=== PATIENT | female | born 1970 | race Caucasian/White ===

== ENCOUNTER 2018-08-28 07:20 | Day surgery (SDC) | payer OTHER ==
[2018-08-27 14:35] VITALS: Ht 170.2 cm; Wt 95.4 kg
[2018-08-28] VITALS (15 sets, daily range): BP systolic 109–153; BP diastolic 64–79; PULSE 74–94; RESP 14–19
[~2018-08-28] VITALS: Ht 170.2 cm; Wt 95.4 kg
--- NOTE | 2018-08-28 06:47 | PREOPHP ---
DATE OF ADMISSION: 08/28/2018 SCHEDULE FOR SURGERY: 08/28/2018. HISTORY OF PRESENT ILLNESS: The patient is a 48-year-old female in overall good health, who underwen t screening imaging revealing in the left breast upper outer quadrant, a 9 mm area of suspicious micr ocalcifications. Core biopsy revealed invasive ductal carcinoma and there was insufficient tissue to do estrogen, progesterone and HER-2 markers. The patient is scheduled to undergo left breast partia l mastectomy with preoperative needle localization and left axillary sentinel lymph node biopsy. PAST MEDICAL HISTORY: MEDICATIONS: Lipitor, and a medication for anxiety, she does not remember the name. ALLERGIES: None. 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 REVIEW OF SYSTEMS: 0, para 0, AB 1. The patient has regular menstrual periods. FAMILY HISTORY: Her grandmother had breast cancer in her 70s. PHYSICAL EXAMINATION: GENERAL: The patient is 5 feet 7 inches, 217 pounds, stable with normal vital signs. HEENT: Within normal limits. LUNGS: Clear. HEART: Regular rhythm. BREAST: The breasts are large and ptotic. There was no palpable mass in either breast. There are n o palpable axillary or supraclavicular lymphadenopathy. ABDOMEN: Soft. PELVIC AND RECTAL: Per primary care. EXTREMITIES: Without edema. NEUROLOGIC: Physiologic. IMPRESSION: Invasive ductal carcinoma, left breast. PLAN: Left breast partial mastectomy with preoperative needle localization and left axillary sentine l lymph node biopsy. I had a full discussion with the patient regarding her condition, the nature of the surgery, indications, alternatives, options and risks including bleeding, infection, injury to a djacent structures or organs, scarring, deformity of the breast and nipple, need for additional surge ry based on final pathology, need for additional treatments based on final pathology including possib le chemotherapy and radiation therapy, hormonal blockade. The patient understands and agrees to proc eed. Dictated By: LUIS RICHEY/IRAIDA Conf#: [id number] DID#: [id number]
[2018-08-28] MEDS ORDERED: SOD CHLORIDE 0.9% 1,000 ML IV SCH (08:00)
--- NOTE | 2018-08-28 09:25 | PREAC ---
Date/Time of Note Date/Time of Note DATE: 08/28/18 TIME: 09:24 Anesthesia Eval and Record Evaluation Time Pre-Procedure Interview DATE: 08/28/18 TIME: 09:24 Age 48 Sex female NPO: 8 hrs Preoperative diagnosis ductal carcinoma Planned procedure left breast partial mastectomy Past Medical History Past Medical History: Includes Cardio: Dyslipidemia GI: Morbid obesity Psych: Anxiety Surgery & Anesthesia Issues No known issue Meds Anticoagulation: No Beta Cathi within 24 hr: No Reason Beta Cathi not given: Pt. not on B-Cathi Current Medications Sodium Chloride 1,000 ml @ 75 mls/hr [id number] IV ; Start 08/28/18 at 08:00; Stop 08/28/18 at 21:19 Meds reviewed: Yes Allergies Coded Allergies: No Known Allergy (Unverified , 08/27/18) Allergies Reviewed: Yes Labs/Studies Labs Reviewed: Reviewed by anesthesiologist test: Negative Studies: ECG (SR), CXR (NAD) Pre-procedure Exam Airway: Adequate mouth opening, Adequate thyromental dist Mallampati: Mallampati II Teeth: Abnormal (poor dentition) Lung: Normal Heart: Normal ASA Physical Status ASA physical status: 3 Emergency: None Planned Anesthetic General/MAC: LMA Pre-operative Attestations Prior to commencing anesthesia and surgery, the patient was re-evaluated, there was verification of: *The patient's identity *The results of appropriate recent lab work and preoperative vital signs *The above evaluation not changing prior to induction *Anesthetic plan, risk benefits, alternative and complications discussed with patient/family; questions answered; patient/family understands, accepts and wishes to proceed. ZEENAT KAUR [facility] JUSTICE Aug 28, 2018 09:25
[2018-08-28] MEDS ORDERED: LIDOCAINE 2% (SDV) 5 ML INJ ONE (09:28)
[2018-08-28] MEDS ORDERED: CEFAZOLIN 1 GM INJ ONE (09:28)
[2018-08-28] MEDS ORDERED: PROPOFOL 20 ML ONE (09:28)
[2018-08-28] MEDS ORDERED: ISOSULFAN BLUE 1% 5 ML INJ SC ONE (09:28)
[2018-08-28] MEDS ORDERED: MIDAZOLAM 1 MG/ML 2 ML INJ ONE (09:32)
[2018-08-28] MEDS ORDERED: ATOR20TA38 PO (10:08)
[2018-08-28] MEDS ORDERED: CLON1TAB13 PO (10:08)
[2018-08-28] MEDS ORDERED: METOCLOPRAMIDE 10 MG INJ ONE (10:10)
[2018-08-28] MEDS ORDERED: ONDANSETRON 4 MG INJ ONE (10:10)
[2018-08-28] MEDS ORDERED: DEXAMETHASONE 4 MG/ML 5 ML INJ ONE (10:28)
[2018-08-28] MEDS ORDERED: ONDANSETRON 4 MG INJ IV PRN ×2 (11:30→12:00)
[2018-08-28] MEDS ORDERED: ACETAMINOPHEN 325 MG TAB PO PRN (11:30)
[2018-08-28] MEDS ORDERED: DIPHENHYDRAMINE 25 MG CAP PO PRN (11:30)
--- NOTE | 2018-08-28 11:33 | SIPON ---
Date/Time of Note Date/Time of Note DATE: 08/28/18 TIME: 11:31 Operative Report Preoperative Diagnosis carcinoma left breast Postoperative Diagnosis same Operation/Procedure Performed left breast partial mastectomy with pre-op needle localization and left axillary sentinel lymph node biopsy Surgeon see signature line facilities maintenance assistant none Anesthesia: general Estimated blood loss: minimal Transfusion Required none Specimen left breast; left axillary lymph nodes Grafts/Implants none Complications none LUIS NICHOLAS Aug 28, 2018 11:33
--- NOTE | 2018-08-28 11:35 | PAC ---
Date/Time of Note Date/Time of Note DATE: 08/28/18 TIME: 11:34 Post-Anesthesia Notes Post-Anesthesia Note Last documented vital signs BP 117/78, HR 90, RR 14, 96%, 97.8 Activity: WNL Respiratory function: WNL Cardiovascular function: WNL Mental status: Baseline Pain reasonably controlled: Yes Hydration appropriate: Yes Nausea/Vomiting absent: Yes ZEENAT KAUR CRNA Aug 28, 2018 11:35
[2018-08-28] MEDS ORDERED: MEPERIDINE 25 MG INJ ONE (11:37)
[2018-08-28] MEDS ORDERED: LABETALOL HCL 20MG INJ IV PRN (12:00)
[2018-08-28] MEDS ORDERED: FENTAnyl 50 MCG/ML VIAL IV PRN ×2 (12:00)
[2018-08-28] MEDS ORDERED: MIDAZOLAM 1 MG/ML 2 ML INJ IV PRN (12:00)
[2018-08-28] MEDS ORDERED: OXYCODONE/ACETAMINOPHEN (5/325) TAB PO PRN ×2 (12:00)
[2018-08-28] MEDS ORDERED: MEPERIDINE 25 MG INJ IV PRN (12:00)
[2018-08-28] MEDS ORDERED: HYDROmorphONE 1 MG/ML SYG SC PRN (12:30)
[2018-08-28] MEDS: D5W-0.45 NACL + KCL 20 MEQ 1,000 ML IV SCH ×2 (13:21→22:00)
--- NOTE | 2018-08-28 14:06 | OPR ---
DATE OF OPERATION: 08/28/2018 SURGEON: Luis Sheffield MD BROTH MIXER: None. ANESTHESIOLOGIST: Jaya Sylvester CRNA. TYPE OF ANESTHESIA: General. PREOPERATIVE DIAGNOSIS: Invasive ductal carcinoma, left breast. POSTOPERATIVE DIAGNOSIS: Invasive ductal carcinoma, left breast. OPERATION PERFORMED: Left breast partial mastectomy with preoperative needle localization and left axillary sentinel lymph node biopsy. DESCRIPTION OF PROCEDURE: The patient was taken to the operating room under general anesthesia with sequential compression device stockings in place she was prepped and draped in the usual fashion. I first injected 3 mL of Lymphazurin at 2 o'clock at the areolar border subdermally. I then made a curvilinear left upper outer quadrant breast incision achieving hemostasis with cautery. Flaps were dissected circumferentially and the localization wire brought into the field. The appropriate sector of breast tissue was identified and a wide excision performed achieving hemostasis with cautery. Specimen radiograph confirmed the presence of the lesion within the specimen, which was then given to pathology. The field was irrigated and hemostasis was secured with cautery. Incision was closed with interrupted 3-0 Vicryl, deep dermal subcutaneous sutures followed by continuous 4-0 Monocryl subcuticular suture. Attention was directed to the left axilla where a vertical incision was made, achieving hemostasis with cautery. The clavipectoral fascia was incised. The blue stained node with an adjacent node was identified and resected using the LigaSure electrosurgical device. Palpation revealed 1 additional enlarged lower level node which was also resected. Pathology evaluated them and found no evidence for metastatic cancer. The field was irrigated and hemostasis was secure. Through a separate stab incision inferolaterally, a large flat Henry- Dixon drain was placed into the axilla and sutured to the skin with 2-0 nylon skin suture. After ascertaining that hemostasis was secure and irrigating the field, the clavipectoral fascia was closed with interrupted 3-0 Vicryl. Subcutaneous tissue was closed with interrupted 3-0 Vicryl and the skin closed with continuous 4-0 Monocryl subcuticular suture. Mastisol and 1/2-inch Steri- Strips were applied to both incisions followed by dry sterile dressing. Final sponge and needle counts were correct. The patient tolerated the procedure well and left the operating room in good condition. Dictated By: LUIS RICHEY/IRAIDA Conf#: [id number] [facility]#: [id number] MTDD
[2018-08-28] MEDS: HYDROCODONE/APAP (5/325) TAB PO PRN (18:38)
[2018-08-28] MEDS ORDERED: ZOLPIDEM 5 MG TAB PO PRN (19:00)
[2018-08-28] MEDS ORDERED: clonAZEPAM 0.5 MG TAB PO PRN (19:00)
[2018-08-28] MEDS: CEFAZOLIN 2 GM/50 ML (PMX) 50 ML IVPB SCH (19:55)
[2018-08-29 02:00] VITALS: BP 117/58; PULSE 74; RESP 18
[2018-08-29] MEDS: CEFAZOLIN 2 GM/50 ML (PMX) 50 ML IVPB SCH (03:06)
[2018-08-29] MEDS: D5W-0.45 NACL + KCL 20 MEQ 1,000 ML IV SCH (07:38)
--- NOTE | 2018-08-29 08:01 | PN ---
Date/Time of Note Date/Time of Note DATE: 08/29/18 TIME: 07:59 Assessment/Plan Lines/Catheters IV Catheter Type (from Nrsg): Peripheral IV Subjective 24 Hr Interval Summary Additional Comments AVSS Doing well. Required IV Zofran but pain controlled with Blanco. Now feels fine Left breast and axilla incisions clean and dry with intact steristrips. MARY KAY 11cc serosang Imp. Doing well Plan: Discharge with drain F/U / office Rx Blanco 5/325 #30 Instructions/limitations/supplies provided/discussed Exam/Review of Systems Vital Signs Vitals Vital Signs Date Temp Pulse Resp B/P (MAP) Pulse Ox O2 O2 Flow FiO2 Time Delivery Rate 08/29/18 98.1 74 18 117/58 97 02:00 (77) 08/28/18 Nasal 2.0 12:29 Cannula Intake and Output 08/28/18 08/28/18 08/29/18 1515:00 23:00 07:00 IntakeIntake Total 1000 ml 1160 ml 1050 ml OutputOutput Total 5 ml 11 ml BalanceBalance 995 ml 1160 ml 1039 ml LUIS NICHOLAS Aug 29, 2018 08:01
[2018-08-29 08:10] VITALS: BP 127/67; PULSE 82; RESP 17
[2018-08-29] MEDS: HYDROCODONE/APAP (5/325) TAB PO PRN (08:19)
== END 2018-08-29 10:15 | disposition home or self-care (01) ==
LOC: SDS 07:20 → PP2 12:51 → SDS 08-29 10:15
PROVIDERS: ATTEND Surgery
DX: D05.12 Intraductal carcinoma in situ of left breast (principal); E78.5 Hyperlipidemia, unspecified; E66.01 Morbid (severe) obesity due to excess calories; Z68.32 Body mass index [BMI] 32.0-32.9, adult
CPT/HCPCS: 19301; 38500; 38792; 84703; 88307; 88331; J0690; J1100; J2175; J2250; J2405; J2765; J3010; J3480; Z7512; Z7610; Q9968